=== PATIENT | male | born 1980 | race Caucasian/White ===

== ENCOUNTER 2021-07-12 10:58 | Emergency (ER) | payer SELFPAY ==
[~2021-07-12] VITALS: Ht 165.1 cm; Wt 91.0 kg
[2021-07-12 11:03] VITALS: BP 170/90
== END 2021-07-12 12:41 | disposition left against medical advice (07) ==
LOC: ER 11:11 → EDBD 11:11 → ER 12:41
DX: R10.9 Unspecified abdominal pain (principal); Z53.21 Procedure and treatment not carried out due to patient leaving prior to being seen by health care provider

== ENCOUNTER 2024-10-06 19:08 | Emergency (ER) | payer MEDICAID ==
[~2024-10-06] VITALS: Ht 175.3 cm; Wt 90.0 kg
[2024-10-06 19:30] VITALS: BP 176/97; PULSE 95; RESP 18; TEMP 98.8; O2SAT 99
[2024-10-06] MEDS: MAGNESIUM/ALUMINUM HYDROXIDE/SIMETHICONE 30ML UDC PO STA (20:40)
[2024-10-06] MEDS: ONDANSETRON 4MG ODT PO STA (20:40)
[2024-10-06 21:35] LABS: BASOPHILS % 0.5 % (0.0-2.0); EOSINOPHILS % 0.7 % (0.0-5.0); HEMATOCRIT. 41.9 % (42.0-52.0); HEMOGLOBIN. 13.7 g/dL (14.0-18.0); LYMPHOCYTES % 20.8 % (20.0-50.0); MEAN CORPUSCULAR HEMOGLOBIN 27.5 pg (28.0-32.0); MEAN CORPUSCULAR HGB CONC 32.7 g/dL (31.0-37.0); MEAN PLATELET VOLUME 8.3 fl (7.4-10.4); MONOCYTES % 6.7 % (2.0-8.0); NEUTROPHILS % 71.3 % (40.0-76.0); PLATELET 201 x1000/uL (130-400); RED BLOOD CELL COUNT 4.99 mill/uL (4.7-6.1); RED CELL DISTRIBUTION WIDTH 16.1 % (11.6-14.6); WHITE BLOOD COUNT 6.7 x1000/uL (4.5-11.0)
[2024-10-06 21:42] LABS: CHLORIDE 106 mEq/L (98-107); POTASSIUM 3.6 mEq/L (3.5-5.1); SODIUM 139 mEq/L (136-145)
[2024-10-06 21:43] LABS: CALCIUM 9.4 mg/dL (8.7-10.4); CARBON DIOXIDE 21 mEq/L (21-32)
[2024-10-06 21:48] LABS: CREATININE 0.9 mg/dL (0.6-1.3); GLUCOSE 141 mg/dL (70-105); UREA NITROGEN BLOOD 12 mg/dL (9-23)
[2024-10-06 21:50] LABS: ALANINE AMINOTRANSFERASE 29 IU/L (10-49); ALBUMIN 4.5 g/dL (3.2-4.8); ASPARTATE AMINOTRANSFERASE 20 IU/L (<34); BILIRUBIN DIRECT 0.2 mg/dL (<=3.0); BILIRUBIN TOTAL 0.6 mg/dL (0.1-1.0); PROTEIN TOTAL 7.2 g/dL (6.0-8.3)
[2024-10-06 22:26] LABS: ETHANOL BLOOD < 10 mg/dL (<10)
== END 2024-10-07 02:34 | disposition home or self-care (01) ==
LOC: ER 19:08
DX: R10.9 Unspecified abdominal pain (principal); F10.90 Alcohol use, unspecified, uncomplicated; Y90.9 Presence of alcohol in blood, level not specified
CPT/HCPCS: 80076; 80048; 80320; 83690; 85025; 36415; 99284; Q0162; G0480

== ENCOUNTER 2024-10-07 03:41 | Emergency (ER) | payer MEDICAID, MEDICARE ==
[~2024-10-07] VITALS: Ht 172.7 cm; Wt 100.0 kg
[2024-10-07 03:46] VITALS: O2SAT 100
[2024-10-07 03:47] VITALS: BP 162/91; PULSE 88; RESP 18; TEMP 37.00296; O2SAT 100
[2024-10-07] MEDS ORDERED: KETOROLAC 30MG/ML VIAL IM ONE (06:45)
[2024-10-07] MEDS ORDERED: LEVETIRACETAM 500MG/5ML CUP PO ONE (06:45)
[2024-10-07] MEDS ORDERED: KETOROLAC 30MG/ML VIAL IM NR (08:30)
== END 2024-10-07 09:49 | disposition home or self-care (01) ==
LOC: ER 03:41
DX: R56.9 Unspecified convulsions (principal); F19.90 Other psychoactive substance use, unspecified, uncomplicated; F10.20 Alcohol dependence, uncomplicated; Y90.9 Presence of alcohol in blood, level not specified
CPT/HCPCS: 99281; A4663; Z7610 ×4; A4606

== ENCOUNTER 2024-11-26 10:34 | Emergency (ER) | payer MEDICAID, MEDICARE ==
[~2024-11-26] VITALS: Ht 172.7 cm; Wt 70.0 kg
[2024-11-26 10:39] VITALS: BP 123/88; PULSE 86; RESP 18; TEMP 36.9; O2SAT 98
[2024-11-26] MEDS ORDERED: ONDANSETRON HCL 4MG/2ML INJ IV STA (10:44)
[2024-11-26] MEDS ORDERED: KETOROLAC 30MG/ML VIAL IV STA (10:44)
[2024-11-26] MEDS ORDERED: SODIUM CHLORIDE 0.9% 1,000 ML IV ONE (10:45)
[2024-11-26 11:08] LABS: BASOPHILS % 0.5 % (0.0-2.0); EOSINOPHILS % 1.3 % (0.0-5.0); HEMATOCRIT. 43.9 % (42.0-52.0); HEMOGLOBIN. 14.2 g/dL (14.0-18.0); LYMPHOCYTES % 19.9 % (20.0-50.0); MEAN CORPUSCULAR HEMOGLOBIN 26.6 pg (28.0-32.0); MEAN CORPUSCULAR HGB CONC 32.3 g/dL (31.0-37.0); MEAN CORPUSCULAR VOLUME 82.5 fL (80.0-94.0); MEAN PLATELET VOLUME 8.3 fl (7.4-10.4); MONOCYTES % 6.6 % (2.0-8.0); NEUTROPHILS % 71.7 % (40.0-76.0); PLATELET 212 x1000/uL (130-400); RED BLOOD CELL COUNT 5.32 mill/uL (4.7-6.1); RED CELL DISTRIBUTION WIDTH 15.9 % (11.6-14.6); WHITE BLOOD COUNT 7.4 x1000/uL (4.5-11.0)
[2024-11-26 11:15] LABS: CHLORIDE 103 mEq/L (98-107); POTASSIUM 4.1 mEq/L (3.5-5.1); SODIUM 137 mEq/L (136-145)
[2024-11-26 11:16] LABS: CALCIUM 9.6 mg/dL (8.7-10.4); CARBON DIOXIDE 26 mEq/L (21-32)
[2024-11-26 11:21] LABS: CREATININE 1.2 mg/dL (0.6-1.3); GLUCOSE 147 mg/dL (70-105)
[2024-11-26 11:22] LABS: TROPONIN I HIGH SENSITIVITY 6 ng/L (3.0-53); UREA NITROGEN BLOOD 15 mg/dL (9-23)
[2024-11-26 11:23] LABS: ALANINE AMINOTRANSFERASE 39 IU/L (10-49); ALBUMIN 4.6 g/dL (3.2-4.8); ASPARTATE AMINOTRANSFERASE 26 IU/L (<34)
[2024-11-26 11:24] LABS: BILIRUBIN DIRECT 0.1 mg/dL (<=3.0); BILIRUBIN TOTAL 0.4 mg/dL (0.1-1.0); PROTEIN TOTAL 7.3 g/dL (6.0-8.3)
[2024-11-26 11:36] LABS: PROTHROMBIN TIME 10.7 sec (9.6-11.0)
== END 2024-11-26 12:03 | disposition left against medical advice (07) ==
LOC: ER 10:34 → EDBEDREQ 10:51 → ER 12:03
DX: R10.9 Unspecified abdominal pain (principal); Z87.19 Personal history of other diseases of the digestive system
CPT/HCPCS: 80076; 80048; 83690; 85025; 85610; 84484; 36415; 99283; J7030; Z7610 ×3

== ENCOUNTER 2025-03-01 10:13 | Emergency (ER) | payer OTHER ==
[~2025-03-01] VITALS: Ht 167.6 cm; Wt 91.0 kg
[2025-03-01 10:21] VITALS: O2SAT 98
[2025-03-01] MEDS ORDERED: LORAZEPAM 2MG/ML INJ IV ONE (10:45)
[2025-03-01 10:47] LABS: BASOPHILS % 0.4 % (0.0-2.0); EOSINOPHILS % 0.5 % (0.0-5.0); HEMOGLOBIN. 14.6 g/dL (14.0-18.0); LYMPHOCYTES % 15.4 % (20.0-50.0); MEAN CORPUSCULAR HEMOGLOBIN 27.8 pg (28.0-32.0); MEAN CORPUSCULAR HGB CONC 33.2 g/dL (31.0-37.0); MEAN CORPUSCULAR VOLUME 83.7 fL (80.0-94.0); MEAN PLATELET VOLUME 8.8 fl (7.4-10.4); MONOCYTES % 4.9 % (2.0-8.0); NEUTROPHILS % 78.8 % (40.0-76.0); PLATELET 204 x1000/uL (130-400); RED BLOOD CELL COUNT 5.26 mill/uL (4.7-6.1); RED CELL DISTRIBUTION WIDTH 16.3 % (11.6-14.6); WHITE BLOOD COUNT 8.6 x1000/uL (4.5-11.0)
[2025-03-01 11:15] LABS: CHLORIDE 107 mEq/L (98-107); POTASSIUM 4.2 mEq/L (3.5-5.1); SODIUM 139 mEq/L (136-145)
[2025-03-01] MEDS: LORAZEPAM 2MG/ML UD SYRINGE IV SCH (11:15)
[2025-03-01 11:17] LABS: CALCIUM 9.6 mg/dL (8.7-10.4); CARBON DIOXIDE 26 mEq/L (21-32)
[2025-03-01 11:22] LABS: CREATININE 0.9 mg/dL (0.6-1.3); ETHANOL BLOOD < 10 mg/dL (<10); GLUCOSE 149 mg/dL (70-105); UREA NITROGEN BLOOD 14 mg/dL (9-23)
[2025-03-01 11:24] LABS: ACETAMINOPHEN 8 ug/mL (10-30)
[2025-03-01] MEDS: ACETAMINOPHEN 650MG/20.3ML UDC PO ONE (11:49)
[2025-03-01] MEDS: ACETAMINOPHEN 325MG TABLET PO ONE (11:49)
[2025-03-01] MEDS: LEVETIRACETAM 500MG PREMIX 100 ML IV ONE (12:26)
[2025-03-01] MEDS ORDERED: KEPP500 MT (16:38)
[2025-03-01 16:40] VITALS: BP 121/88; PULSE 71; RESP 19; TEMP 36.9; O2SAT 95
[2025-03-01] MEDS ORDERED: TOPUD MT (16:56)
[2025-03-01] MEDS ORDERED: ONDA4TAB50 MT (16:56)
== END 2025-03-01 17:12 | disposition home or self-care (01) ==
LOC: ER 10:13
DX: G40.909 Epilepsy, unspecified, not intractable, without status epilepticus (principal)
CPT/HCPCS: 80048; 80307; 80329; 80320; 85025; 36415; 70450; 96365; 96375; 99285; 82542; J1953; J2060; Z7610 ×3; A4606; G0480

== ENCOUNTER 2025-03-03 10:16 | Emergency (ER) | payer OTHER ==
[~2025-03-03] VITALS: Ht 172.7 cm; Wt 109.0 kg
[~2025-03-03 10:16] MED LIST: KEPP500 MT; ONDA4TAB50 MT; TOPUD MT
[2025-03-03 10:24] VITALS: O2SAT 96
[2025-03-03] MEDS: VISCOUS LIDOCAINE 2% 15 ML UDC PO STA (11:15)
[2025-03-03] MEDS: MAGNESIUM/ALUMINUM HYDROXIDE/SIMETHICONE 30ML UDC PO STA (11:15)
[2025-03-03 12:27] LABS: BASOPHILS % 0.5 % (0.0-2.0); EOSINOPHILS % 0.3 % (0.0-5.0); HEMATOCRIT. 42.6 % (42.0-52.0); HEMOGLOBIN. 14.5 g/dL (14.0-18.0); LYMPHOCYTES % 21.4 % (20.0-50.0); MEAN CORPUSCULAR VOLUME 82.3 fL (80.0-94.0); MEAN PLATELET VOLUME 8.8 fl (7.4-10.4); MONOCYTES % 6.5 % (2.0-8.0); NEUTROPHILS % 71.3 % (40.0-76.0); PLATELET 219 x1000/uL (130-400); RED BLOOD CELL COUNT 5.17 mill/uL (4.7-6.1); RED CELL DISTRIBUTION WIDTH 15.9 % (11.6-14.6); WHITE BLOOD COUNT 8.8 x1000/uL (4.5-11.0)
[2025-03-03 12:40] LABS: CARBON DIOXIDE 25 mEq/L (21-32); CHLORIDE 101 mEq/L (98-107); POTASSIUM 4.2 mEq/L (3.5-5.1); SODIUM 137 mEq/L (136-145)
[2025-03-03 12:41] LABS: CALCIUM 9.9 mg/dL (8.7-10.4)
[2025-03-03 12:46] LABS: GLUCOSE 126 mg/dL (70-105); UREA NITROGEN BLOOD 16 mg/dL (9-23)
[2025-03-03 12:47] LABS: ALANINE AMINOTRANSFERASE 39 IU/L (10-49); ALBUMIN 5.2 g/dL (3.2-4.8); ASPARTATE AMINOTRANSFERASE 23 IU/L (<34)
[2025-03-03 12:48] LABS: BILIRUBIN DIRECT 0.2 mg/dL (<=3.0); BILIRUBIN TOTAL 0.5 mg/dL (0.1-1.0); PROTEIN TOTAL 8.1 g/dL (6.0-8.3)
[2025-03-03 12:50] LABS: PROTHROMBIN TIME 10.8 sec (9.6-11.0)
[2025-03-03] MEDS: PANTOPRAZOLE SODIUM 40 MG/VIAL IV STA (14:28)
[2025-03-03] MEDS: MORPHINE SULFATE 4 MG/ML INJ (FOR IV/IM USE) IV STA (14:28)
[2025-03-03] MEDS: VISCOUS LIDOCAINE 2% 15 ML UDC PO SCH (14:30)
[2025-03-03] MEDS: PANTOPRAZOLE SODIUM 40 MG/VIAL IV SCH (14:30)
[2025-03-03] MEDS: MORPHINE SULFATE 4 MG/ML INJ (FOR IV/IM USE) IV SCH (14:30)
[2025-03-03] MEDS: MAGNESIUM/ALUMINUM HYDROXIDE/SIMETHICONE 30ML UDC PO SCH (14:30)
[2025-03-03] MEDS: SODIUM CHLORIDE 0.9% 1,000 ML IV ONE (14:36)
[2025-03-03] MEDS: LEVETIRACETAM 500MG PREMIX 100 ML IV ONE (15:10)
[2025-03-03 17:50] VITALS: BP 102/60; PULSE 60; RESP 15; TEMP 36.5; O2SAT 96
[2025-03-03] MEDS ORDERED: RIVA20TA PO (19:37)
[2025-03-03] MEDS ORDERED: DEXTROSE 50% WATER 50ML SYRINGE IV PRN (19:45)
[2025-03-03] MEDS ORDERED: BLOOD SUGAR DIAGNOSTIC STRIP TEST SCH (21:00)
[2025-03-03] MEDS ORDERED: LEVETIRACETAM 500MG TABLET PO SCH (21:00)
[2025-03-03] MEDS ORDERED: INSULIN LISPRO 100 UNITS/ML SUBCUT SCH (21:00)
[2025-03-04] MEDS ORDERED: RIVAROXABAN 20 MG TABLET PO SCH (09:00)
== END 2025-03-03 19:58 | disposition left against medical advice (07) ==
LOC: ER 10:16 → CANBEDREQ 16:52 → ER 19:58
DX: R10.9 Unspecified abdominal pain (principal); R56.9 Unspecified convulsions; Z79.899 Other long term (current) drug therapy; E11.9 Type 2 diabetes mellitus without complications; Z79.01 Long term (current) use of anticoagulants; Z87.19 Personal history of other diseases of the digestive system
CPT/HCPCS: 80061; 80076; 80048; 83036; 83690; 85025; 85610; 36415; 70450; 74176; 96361; 96365; 96375; 99285; J1953; J2470; J2270; J7030; Z7610 ×6; A4606

== ENCOUNTER 2025-04-15 09:47 | Emergency (ER) | payer OTHER ==
[~2025-04-15] VITALS: Ht 172.7 cm; Wt 85.0 kg
[~2025-04-15 09:47] MED LIST changes: +RIVA20TA PO
[2025-04-15 09:50] VITALS: O2SAT 99
[2025-04-15 10:14] LABS: BASOPHILS % 0.5 % (0.0-2.0); EOSINOPHILS % 0.7 % (0.0-5.0); HEMATOCRIT. 43.4 % (42.0-52.0); HEMOGLOBIN. 14.2 g/dL (14.0-18.0); LYMPHOCYTES % 18.8 % (20.0-50.0); MEAN PLATELET VOLUME 8.7 fl (7.4-10.4); MONOCYTES % 5.4 % (2.0-8.0); NEUTROPHILS % 74.6 % (40.0-76.0); PLATELET 214 x1000/uL (130-400); RED BLOOD CELL COUNT 5.20 mill/uL (4.7-6.1); RED CELL DISTRIBUTION WIDTH 15.9 % (11.6-14.6)
[2025-04-15 10:19] LABS: INR 1.0
[2025-04-15 10:29] LABS: CREATININE 0.9 mg/dL (0.6-1.3); UREA NITROGEN BLOOD 12 mg/dL (9-23)
[2025-04-15] MEDS ORDERED: MORPHINE SULFATE 4 MG/ML INJ (FOR IV/IM USE) IV ONE (10:30)
[2025-04-15] MEDS ORDERED: ONDANSETRON HCL 4MG/2ML INJ IV ONE (10:30)
[2025-04-15] MEDS ORDERED: SODIUM CHLORIDE 0.9% 1,000 ML IV ONE (10:30)
[2025-04-15 12:00] VITALS: BP 111/62; PULSE 88; RESP 14; TEMP 36.8; O2SAT 99
== END 2025-04-15 13:22 | disposition left against medical advice (07) ==
LOC: ER 09:47
DX: N20.0 Calculus of kidney (principal); R10.11 Right upper quadrant pain; G40.909 Epilepsy, unspecified, not intractable, without status epilepticus; Z79.899 Other long term (current) drug therapy
CPT/HCPCS: 36415; 74176; 80048; 85025; 99284; J7030

== ENCOUNTER 2025-05-28 03:19 | Inpatient (IN) | payer OTHER ==
[~2025-05-28] VITALS: Ht 167.6 cm; Wt 108.4 kg
[2025-05-28 03:21] VITALS: O2SAT 98
[2025-05-28] MEDS: SODIUM CHLORIDE 0.9% 1,000 ML IV ONE (03:45)
[2025-05-28] MEDS: ONDANSETRON HCL 4MG/2ML INJ IV ONE (04:40)
[2025-05-28] MEDS: LEVETIRACETAM 1000MG PREMIX 100 ML IV ONE (04:40)
[2025-05-28] MEDS: LORAZEPAM 2MG/ML UD SYRINGE IV SCH (04:41)
[2025-05-28 04:58] LABS: BASOPHILS % 0.6 % (0.0-2.0); EOSINOPHILS % 0.3 % (0.0-5.0); HEMATOCRIT. 38.3 % (42.0-52.0); HEMOGLOBIN. 12.8 g/dL (14.0-18.0); LYMPHOCYTES % 9.9 % (20.0-50.0); MEAN PLATELET VOLUME 8.3 fl (7.4-10.4); MONOCYTES % 4.1 % (2.0-8.0); NEUTROPHILS % 85.1 % (40.0-76.0); PLATELET 256 x1000/uL (130-400); RED BLOOD CELL COUNT 4.55 mill/uL (4.7-6.1); RED CELL DISTRIBUTION WIDTH 16.3 % (11.6-14.6)
[2025-05-28 05:10] LABS: INR 1.0
[2025-05-28 05:23] LABS: CREATININE 1.0 mg/dL (0.6-1.3)
[2025-05-28 05:24] LABS: ETHANOL BLOOD < 10 mg/dL (<10); UREA NITROGEN BLOOD 17 mg/dL (9-23)
[2025-05-28 05:25] LABS: CARBAMAZEPINE < 0.4 ug/mL (4-12); PHENYTOIN < 2.0 ug/mL (10-20); VALPROIC ACID < 3.0 ug/mL (50-100)
[2025-05-28] MEDS: THIAMINE HCL 100MG TABLET PO SCH (09:30)
[2025-05-28] MEDS: CHLORDIAZEPOXIDE 25MG CAPSULE PO SCH (09:30)
[2025-05-28] MEDS: FOLIC ACID 1MG TABLET PO SCH (09:30)
[2025-05-28] MEDS: PANTOPRAZOLE SODIUM 40 MG/VIAL IV SCH (09:30)
[2025-05-28 12:00] VITALS: BP 108/65; PULSE 78; RESP 18; O2SAT 93
[2025-05-28] MEDS ORDERED: LORAZEPAM 2MG/ML UD SYRINGE ONE (12:39)
[2025-05-28] MEDS: LORAZEPAM 2MG/ML UD SYRINGE IV PRN (13:00)
[2025-05-28] MEDS ORDERED: DEXTROSE 50% WATER 50ML SYRINGE IV PRN (13:15)
[2025-05-28] MEDS ORDERED: ONDANSETRON HCL 4MG/2ML INJ IV PRN (13:15)
[2025-05-28] MEDS ORDERED: LEVETIRACETAM 1,500MG in NACL 100ML PREMIX IV ONE (13:35)
[2025-05-28] MEDS ORDERED: LEVETIRACETAM 1000MG PREMIX 100 ML IV SCH (14:00)
[2025-05-28] MEDS: SODIUM CHLORIDE 0.9% 1,000 ML IV SCH (14:38)
[2025-05-28 16:00] VITALS: BP 123/84; PULSE 89; RESP 18; TEMP 37.2; O2SAT 97
[2025-05-28] MEDS: BLOOD SUGAR DIAGNOSTIC STRIP TEST SCH (16:49)
[2025-05-28] MEDS: INSULIN LISPRO 100 UNITS/ML SUBCUT SCH (16:51)
[2025-05-28] MEDS: RIVAROXABAN 20 MG TABLET PO SCH (17:00)
[2025-05-28 17:05] VITALS: BP 108/65; PULSE 78; RESP 18; TEMP 36.696; TEMP 36.6960
[2025-05-28] MEDS: LEVETIRACETAM 1000MG PREMIX 100 ML IV SCH (18:03)
[2025-05-28] MEDS ORDERED: LEVETIRACETAM 1,000MG in NACL 100ML PREMIX IV SCH (21:00)
[2025-05-29] MEDS ORDERED: PANTOPRAZOLE SODIUM 40 MG/VIAL IV SCH (09:00)
== END 2025-05-28 18:48 | disposition left against medical advice (07) | DRG 53 ==
LOC: ER 03:23 → 5WST 05:53 → EDBEDREQ 05:56 → EDBEDREQTM 05:56 → EDBEDREQ 07:46 → EDBEDREQTM 07:46 → ENRESERV 07:54
PROVIDERS: ADMIT Internal Medicine; ATTEND Internal Medicine
DX: G40.901 Epilepsy, unspecified, not intractable, with status epilepticus (principal); J96.01 Acute respiratory failure with hypoxia; F10.129 Alcohol abuse with intoxication, unspecified; R73.9 Hyperglycemia, unspecified; Y90.9 Presence of alcohol in blood, level not specified; Z53.29 Procedure and treatment not carried out because of patient's decision for other reasons
CPT/HCPCS: 36415; 71045; 80048; 80156; 80165; 80185; 80320; 82962; 85025; 93005; 96361; 96365; 96375; 99285; A4606; J1953; J2060; J2405; J7030; G0480

== ENCOUNTER 2025-06-14 06:27 | Emergency (ER) | payer OTHER ==
[~2025-06-14] VITALS: Ht 167.6 cm; Wt 74.0 kg
[2025-06-14 06:30] VITALS: O2SAT 99
[2025-06-14 07:20] LABS: BASOPHILS % 0.3 % (0.0-2.0); EOSINOPHILS % 0.3 % (0.0-5.0); HEMATOCRIT. 40.5 % (42.0-52.0); HEMOGLOBIN. 13.0 g/dL (14.0-18.0); LYMPHOCYTES % 7.9 % (20.0-50.0); MEAN PLATELET VOLUME 8.4 fl (7.4-10.4); MONOCYTES % 3.3 % (2.0-8.0); NEUTROPHILS % 88.2 % (40.0-76.0); PLATELET 184 x1000/uL (130-400); RED BLOOD CELL COUNT 4.75 mill/uL (4.7-6.1); RED CELL DISTRIBUTION WIDTH 15.8 % (11.6-14.6)
[2025-06-14 07:37] LABS: CREATININE 0.9 mg/dL (0.6-1.3); INR 1.1
[2025-06-14 07:38] LABS: ETHANOL BLOOD < 10 mg/dL (<10); TRIGLYCERIDE 137 mg/dL (0-150); UREA NITROGEN BLOOD 13 mg/dL (9-23)
[2025-06-14 07:39] LABS: ASPARTATE AMINOTRANSFERASE 18 IU/L (<34)
[2025-06-14 07:40] LABS: BILIRUBIN DIRECT 0.3 mg/dL (<=3.0); BILIRUBIN TOTAL 1.0 mg/dL (0.1-1.0); PROTEIN TOTAL 7.4 g/dL (6.0-8.3)
[2025-06-14] MEDS: MORPHINE SULFATE 4 MG/ML INJ (FOR IV/IM USE) IV ONE (07:45)
[2025-06-14] MEDS: LEVETIRACETAM 1000MG PREMIX 100 ML IV ONE (07:45)
[2025-06-14] MEDS: ONDANSETRON HCL 4MG/2ML INJ IV ONE (07:45)
[2025-06-14] MEDS: FAMOTIDINE 20MG/2ML VIAL IV ONE (07:45)
[2025-06-14] MEDS: SODIUM CHLORIDE 0.9% 1,000 ML IV ONE (07:46)
[2025-06-14] MEDS: ACETAMINOPHEN 1000MG/100ML 100 ML IV ONE (08:02)
[2025-06-14 16:23] VITALS: BP 120/76; PULSE 67; RESP 15; TEMP 36.6; O2SAT 99
== END 2025-06-14 16:37 | disposition home or self-care (01) ==
LOC: ER 06:27
DX: R56.9 Unspecified convulsions (principal); F17.200 Nicotine dependence, unspecified, uncomplicated; Z79.899 Other long term (current) drug therapy
CPT/HCPCS: 80076; 80048; 80320; 83690; 84478; 85025; 85610; 36415; 71045; 74176; 96368; 96365; 96375; 99285; J1953; J1308; J2405; J2270; J7030; Z7610 ×2; G0480; J0131

== ENCOUNTER 2025-06-14 17:21 | Emergency (ER) | payer OTHER ==
[~2025-06-14] VITALS: Ht 175.3 cm; Wt 91.0 kg
[2025-06-14 17:34] VITALS: BP 167/92; PULSE 82; RESP 18; TEMP 36.5; O2SAT 97
== END 2025-06-14 17:55 | disposition left against medical advice (07) ==
LOC: ER 17:21
DX: R10.9 Unspecified abdominal pain (principal); Z53.21 Procedure and treatment not carried out due to patient leaving prior to being seen by health care provider

== ENCOUNTER 2025-06-16 18:52 | Emergency (ER) | payer OTHER ==
[~2025-06-16] VITALS: Ht 172.7 cm; Wt 100.0 kg
[2025-06-16 18:59] VITALS: O2SAT 98
[2025-06-16] MEDS: LORAZEPAM 2MG/ML UD SYRINGE IV SCH (19:45)
[2025-06-16 19:57] LABS: BASOPHILS % 0.6 % (0.0-2.0); EOSINOPHILS % 0.6 % (0.0-5.0); HEMATOCRIT. 41.4 % (42.0-52.0); HEMOGLOBIN. 13.6 g/dL (14.0-18.0); LYMPHOCYTES % 23.8 % (20.0-50.0); MEAN PLATELET VOLUME 8.6 fl (7.4-10.4); MONOCYTES % 5.9 % (2.0-8.0); NEUTROPHILS % 69.1 % (40.0-76.0); PLATELET 255 x1000/uL (130-400); RED BLOOD CELL COUNT 4.85 mill/uL (4.7-6.1); RED CELL DISTRIBUTION WIDTH 15.3 % (11.6-14.6)
[2025-06-16 20:09] LABS: INR 1.0
[2025-06-16 20:16] LABS: CREATININE 1.0 mg/dL (0.6-1.3)
[2025-06-16 20:17] LABS: ETHANOL BLOOD < 10 mg/dL (<10); UREA NITROGEN BLOOD 15 mg/dL (9-23)
[2025-06-16 20:18] LABS: ASPARTATE AMINOTRANSFERASE 16 IU/L (<34); BILIRUBIN DIRECT 0.3 mg/dL (<=3.0); BILIRUBIN TOTAL 0.8 mg/dL (0.1-1.0)
[2025-06-16 20:19] LABS: PROTEIN TOTAL 7.3 g/dL (6.0-8.3)
[2025-06-16] MEDS: ONDANSETRON HCL 4MG/2ML INJ IV ONE (20:22)
[2025-06-16] MEDS: SODIUM CHLORIDE 0.9% 1,000 ML IV ONE (20:23)
[2025-06-16] MEDS: PANTOPRAZOLE SODIUM 40 MG/VIAL IV ONE (20:23)
[2025-06-16] MEDS: LEVETIRACETAM 1000MG PREMIX 100 ML IV ONE (20:23)
[2025-06-16 20:41] LABS: CARBAMAZEPINE < 0.4 ug/mL (4-12); PHENOBARBITAL < 3.0 ug/mL (15.0-40.0); PHENYTOIN < 2.0 ug/mL (10-20); VALPROIC ACID < 3.0 ug/mL (50-100)
[2025-06-16 21:00] LABS: CLARITY URINE CLEAR (CLEAR); COLOR URINE DARK YELLOW (YELLOW); GLUCOSE URINE NEGATIVE (NEGATIVE); KETONES URINE 1+ (NEGATIVE); LEUKOCYTE ESTERASE URINE NEGATIVE (NEGATIVE); NITRITE URINE NEGATIVE (NEGATIVE); OCCULT BLOOD URINE 1+ (NEGATIVE); PH URINE 5.5 (4.5-8.0); PROTEIN URINE 3+ (NEGATIVE); SPECIFIC GRAVITY URINE 1.045 (1.005-1.030); UROBILINOGEN URINE 1.0 E.U./dL (0.2-1.0)
[2025-06-16 21:10] LABS: *AMPHETAMINES SCREEN URINE NEGATIVE (NEGATIVE); *BENZODIAZEPINES SCREEN URINE PRESUMPTIVE POSITIVE (NEGATIVE)
[2025-06-16 21:11] LABS: *BARBITURATES SCREEN URINE NEGATIVE (NEGATIVE); *COCAINE SCREEN URINE NEGATIVE (NEGATIVE); BACTERIA URINE TRACE; CANNABINOID URINE SCREEN PRESUMPTIVE POSITIVE (NEGATIVE); ECSTASY MDMA SCREEN URINE NEGATIVE (NEGATIVE); METHADONE URINE SCREEN NEGATIVE (NEGATIVE); OPIATES URINE SCREEN NEGATIVE (NEGATIVE); PHENCYCLIDINE URINE SCREEN NEGATIVE (NEGATIVE); SQUAMOUS EPITHELIAL CELL URINE NONE SEEN /lpf (RARE/1+); WBC URINE 0-2 /hpf (0-2)
[2025-06-16] MEDS: KCL 20MEQ/100ML PREMIX 100 ML IV ONE (22:14)
[2025-06-16 22:45] VITALS: BP 127/75; PULSE 79; RESP 20; TEMP 36.8; O2SAT 96
== END 2025-06-16 23:22 | disposition short-term general hospital (02) ==
LOC: ER 18:52 → EDBEDREQ 21:03 → ER 23:22 → CMPBEDREQ 06-17 10:54
DX: R56.9 Unspecified convulsions (principal); R11.2 Nausea with vomiting, unspecified; F12.90 Cannabis use, unspecified, uncomplicated; Z87.891 Personal history of nicotine dependence; Z79.01 Long term (current) use of anticoagulants; E87.6 Hypokalemia
CPT/HCPCS: 80076; 80305; 80048; 81003; 80320; 80156; 80185; 83690; 83735; 80184; 80165; 85025; 85610; 36415; 93005; 96367; 96368; 96365; 96366; 96375; 99291; 82542; J1953; J2405; J2470; J3480; J7030; Z7610 ×3; 99285; A4606; J2060; G0480

== ENCOUNTER 2025-06-30 06:45 | Emergency (ER) | payer OTHER ==
[~2025-06-30] VITALS: Ht 170.2 cm; Wt 109.0 kg
[2025-06-30 06:47] VITALS: O2SAT 98
[2025-06-30] MEDS: KETOROLAC 15MG/ML VIAL IV ONE (07:40)
[2025-06-30] MEDS: SODIUM CHLORIDE 0.9% 1,000 ML IV ONE (07:40)
[2025-06-30 08:28] LABS: BASOPHILS % 0.4 % (0.0-2.0); EOSINOPHILS % 1.0 % (0.0-5.0); HEMATOCRIT. 39.9 % (42.0-52.0); HEMOGLOBIN. 13.1 g/dL (14.0-18.0); LYMPHOCYTES % 16.4 % (20.0-50.0); MEAN PLATELET VOLUME 8.9 fl (7.4-10.4); MONOCYTES % 5.8 % (2.0-8.0); NEUTROPHILS % 76.4 % (40.0-76.0); PLATELET 216 x1000/uL (130-400); RED BLOOD CELL COUNT 4.69 mill/uL (4.7-6.1); RED CELL DISTRIBUTION WIDTH 15.4 % (11.6-14.6)
[2025-06-30 08:44] LABS: CREATININE 0.9 mg/dL (0.6-1.3)
[2025-06-30 08:45] LABS: UREA NITROGEN BLOOD 12 mg/dL (9-23)
[2025-06-30 08:46] LABS: ASPARTATE AMINOTRANSFERASE 19 IU/L (<34)
[2025-06-30 08:47] LABS: BILIRUBIN DIRECT < 0.1 mg/dL (<=3.0); BILIRUBIN TOTAL 0.3 mg/dL (0.1-1.0); PROTEIN TOTAL 7.1 g/dL (6.0-8.3)
[2025-06-30] MEDS ORDERED: MORPHINE SULFATE 4 MG/ML INJ (FOR IV/IM USE) IV PRN (09:30)
[2025-06-30] MEDS ORDERED: ENOXAPARIN 40MG/0.4ML SYR SUBCUT SCH (09:30)
[2025-06-30] MEDS ORDERED: ACETAMINOPHEN 325MG TABLET PO PRN (09:30)
[2025-06-30] MEDS ORDERED: ONDANSETRON HCL 4MG/2ML INJ IV PRN (09:30)
[2025-06-30] MEDS ORDERED: MAGNESIUM/ALUMINUM HYDROXIDE/SIMETHICONE 30ML UDC PO PRN (09:30)
[2025-06-30] MEDS ORDERED: HYDROCODONE/ACETAMINOPHEN 5/325MG TABLET PO PRN (09:30)
[2025-06-30] MEDS ORDERED: CLONIDINE 0.1MG TABLET PO PRN (09:30)
[2025-06-30 10:30] VITALS: BP 146/86; PULSE 76; RESP 16; TEMP 37; O2SAT 96
[2025-06-30] MEDS ORDERED: PANTOPRAZOLE SODIUM 40 MG/VIAL IV SCH (10:30)
[2025-06-30] MEDS ORDERED: SODIUM CHLORIDE 0.9% 1,000 ML IV SCH (10:30)
[2025-06-30] MEDS ORDERED: ENOXAPARIN 30MG/0.3ML SYR SUBCUT SCH (10:30)
[2025-06-30] MEDS ORDERED: NALOXONE HCL 0.4MG/ML VIAL IV PRN (10:30)
[2025-06-30] MEDS ORDERED: ZOLPIDEM TARTRATE 5MG TABLET PO PRN (21:00)
== END 2025-06-30 10:47 | disposition home or self-care (01) ==
LOC: ER 06:45 → CANBEDREQ 10:29 → ER 10:47
DX: R56.9 Unspecified convulsions (principal); F12.90 Cannabis use, unspecified, uncomplicated; Z79.01 Long term (current) use of anticoagulants; Z79.899 Other long term (current) drug therapy
CPT/HCPCS: 80076; 80048; 83690; 85025; 36415; 96361; 96374; 99285; J1885; J7030; Z7610 ×4; A4606

== ENCOUNTER 2025-06-30 21:07 | Emergency (ER) | payer OTHER ==
[~2025-06-30] VITALS: Ht 172.7 cm; Wt 109.0 kg
[2025-06-30 21:29] VITALS: O2SAT 100
[2025-06-30] MEDS: SODIUM CHLORIDE 0.9% 1,000 ML IV ONE (21:30)
[2025-06-30] MEDS: ONDANSETRON HCL 4MG/2ML INJ IV ONE (21:30)
[2025-06-30] MEDS: KETOROLAC 15MG/ML VIAL IV ONE (21:30)
[2025-06-30 21:55] LABS: BASOPHILS % 0.5 % (0.0-2.0); EOSINOPHILS % 1.0 % (0.0-5.0); HEMATOCRIT. 40.6 % (42.0-52.0); HEMOGLOBIN. 13.2 g/dL (14.0-18.0); LYMPHOCYTES % 24.6 % (20.0-50.0); MEAN PLATELET VOLUME 8.4 fl (7.4-10.4); MONOCYTES % 6.0 % (2.0-8.0); NEUTROPHILS % 67.9 % (40.0-76.0); PLATELET 241 x1000/uL (130-400); RED BLOOD CELL COUNT 4.74 mill/uL (4.7-6.1); RED CELL DISTRIBUTION WIDTH 15.6 % (11.6-14.6)
[2025-06-30 22:09] LABS: CREATININE 1.0 mg/dL (0.6-1.3)
[2025-06-30 22:10] LABS: UREA NITROGEN BLOOD 13 mg/dL (9-23)
[2025-06-30 22:11] LABS: ASPARTATE AMINOTRANSFERASE 22 IU/L (<34)
[2025-06-30 22:12] LABS: BILIRUBIN DIRECT 0.2 mg/dL (<=3.0); BILIRUBIN TOTAL 0.7 mg/dL (0.1-1.0); PROTEIN TOTAL 7.6 g/dL (6.0-8.3)
[2025-07-01] MEDS: LORAZEPAM 2MG/ML UD SYRINGE IV NR (03:00)
[2025-07-01] MEDS: HALOPERIDOL LACTATE 5MG/ML VIAL IM ONE (03:00)
[2025-07-01] MEDS: ONDANSETRON HCL 4MG/2ML INJ IV NR (04:14)
[2025-07-01] MEDS: KETOROLAC 15MG/ML VIAL IV NR (04:15)
[2025-07-01 04:25] VITALS: BP 145/96; PULSE 72; RESP 13; TEMP 37.1; O2SAT 100
== END 2025-07-01 04:56 | disposition short-term general hospital (02) ==
LOC: ER 21:07 → CMPBEDREQ 07-02 08:02
DX: R11.2 Nausea with vomiting, unspecified (principal); R56.9 Unspecified convulsions; F41.9 Anxiety disorder, unspecified; Z79.899 Other long term (current) drug therapy
CPT/HCPCS: 80076; 80048; 80320; 83690; 85025; 36415; 99285; 70450; 96372; 96374; 96375; J7030; J1630; J1885; J2060; J2405; Z7610 ×4; A4606; G0480

== ENCOUNTER 2025-07-06 11:44 | Emergency (ER) | payer OTHER ==
[~2025-07-06] VITALS: Ht 172.7 cm; Wt 111.0 kg
[2025-07-06 11:58] VITALS: TEMP 36.9; O2SAT 99
[2025-07-06] MEDS: MAGNESIUM/ALUMINUM HYDROXIDE/SIMETHICONE 30ML UDC PO ONE (13:22)
[2025-07-06] MEDS: FAMOTIDINE 20MG TABLET PO ONE (13:22)
[2025-07-06] MEDS: ONDANSETRON 4MG ODT PO ONE (13:23)
[2025-07-06 13:37] LABS: BASOPHILS % 0.3 % (0.0-2.0); EOSINOPHILS % 0.4 % (0.0-5.0); HEMATOCRIT. 40.9 % (42.0-52.0); HEMOGLOBIN. 13.2 g/dL (14.0-18.0); LYMPHOCYTES % 14.8 % (20.0-50.0); MEAN PLATELET VOLUME 8.9 fl (7.4-10.4); MONOCYTES % 5.5 % (2.0-8.0); NEUTROPHILS % 79.0 % (40.0-76.0); PLATELET 193 x1000/uL (130-400); RED BLOOD CELL COUNT 4.72 mill/uL (4.7-6.1); RED CELL DISTRIBUTION WIDTH 16.0 % (11.6-14.6)
[2025-07-06 13:59] LABS: CREATININE 0.8 mg/dL (0.6-1.3); UREA NITROGEN BLOOD 9 mg/dL (9-23)
[2025-07-06 14:00] LABS: TROPONIN I HIGH SENSITIVITY 4 ng/L (3.0-53)
[2025-07-06 14:01] LABS: ASPARTATE AMINOTRANSFERASE 18 IU/L (<34); BILIRUBIN DIRECT 0.1 mg/dL (<=3.0); BILIRUBIN TOTAL 0.4 mg/dL (0.1-1.0); PROTEIN TOTAL 7.2 g/dL (6.0-8.3)
[2025-07-06 14:53] VITALS: BP 144/85; PULSE 78; RESP 16; O2SAT 98
== END 2025-07-06 16:02 | disposition home or self-care (01) ==
LOC: ER 11:44
DX: R11.2 Nausea with vomiting, unspecified (principal); F41.9 Anxiety disorder, unspecified
CPT/HCPCS: 80076; 80048; 80320; 83690; 85025; 84484; 36415; 99284; Q0162; G0480

== ENCOUNTER 2025-09-26 09:02 | Emergency (ER) | payer OTHER ==
[~2025-09-26] VITALS: Ht 30.5 cm; Wt 0.5 kg
[2025-09-26] MEDS: LORAZEPAM 2MG/ML UD SYRINGE ONE (09:13)
[2025-09-26] MEDS: LORAZEPAM 2MG/ML UD SYRINGE IM NR (09:33)
[2025-09-26 09:55] LABS: BASOPHILS % 0.5 % (0.0-2.0); EOSINOPHILS % 0.4 % (0.0-5.0); HEMATOCRIT. 40.4 % (42.0-52.0); HEMOGLOBIN. 13.1 g/dL (14.0-18.0); LYMPHOCYTES % 14.5 % (20.0-50.0); MEAN PLATELET VOLUME 8.7 fl (7.4-10.4); MONOCYTES % 5.4 % (2.0-8.0); NEUTROPHILS % 79.2 % (40.0-76.0); PLATELET 224 x1000/uL (130-400); RED BLOOD CELL COUNT 4.80 mill/uL (4.7-6.1); RED CELL DISTRIBUTION WIDTH 16.1 % (11.6-14.6)
[2025-09-26 09:58] LABS: CREATININE 1.1 mg/dL (0.6-1.3); UREA NITROGEN BLOOD 15 mg/dL (9-23)
[2025-09-26 09:59] LABS: ETHANOL BLOOD < 10 mg/dL (<10); PROTEIN TOTAL 7.5 g/dL (6.0-8.3)
[2025-09-26 10:00] LABS: ASPARTATE AMINOTRANSFERASE 13 IU/L (<34); BILIRUBIN DIRECT 0.2 mg/dL (<=3.0); BILIRUBIN TOTAL 0.5 mg/dL (0.1-1.0)
[2025-09-26] MEDS: FAMOTIDINE 20MG/2ML VIAL IV NR (11:16)
[2025-09-26] MEDS: ONDANSETRON HCL 4MG/2ML INJ IV NR (11:17)
[2025-09-26] MEDS: KETOROLAC 30MG/ML VIAL IV NR (11:17)
[2025-09-26] MEDS: LEVETIRACETAM 1500MG PREMIX 100 ML IV SCH (11:17)
[2025-09-26 13:30] VITALS: BP 116/41; PULSE 91; RESP 12; TEMP 37.1; O2SAT 96
[2025-09-26] MEDS ORDERED: LEVETIRACETAM 1000MG PREMIX 100 ML IV SCH (21:00)
== END 2025-09-26 13:44 | disposition home or self-care (01) ==
LOC: ER 09:02 → EDBEDREQ 12:15 → EDBEDREQTM 12:15 → ER 13:44 → CMPBEDREQ 15:31
DX: R56.9 Unspecified convulsions (principal); F41.9 Anxiety disorder, unspecified; Z55.6 Problems related to health literacy; Z79.01 Long term (current) use of anticoagulants; Z87.19 Personal history of other diseases of the digestive system
CPT/HCPCS: 80076; 80048; 80320; 85025; 36415; 93005; 96365; 96372; 96375; 99285; J1953; J1308; J1885; J2060; J2405; Z7610; G0480